=== PATIENT | male | born 1970 | race Caucasian/White ===

== ENCOUNTER → 2018-11-04 | Outpatient (CLI) | payer BC ==
--- NOTE | 2018-11-04 10:35 | NM ---
EXAMINATION TYPE: NM hepatobiliary w EF DATE OF EXAM: 11/04/2018 COMPARISON: Abdominal ultrasound dated 11/04/2018 HISTORY: Right upper quadrant pain TECHNIQUE: After the intravenous administration of 5.21 mCi Tc 99m Mebrofenin hepatobiliary scintigra phy is performed. Immediate images post injection. FINDINGS: There is satisfactory initial accumulation of tracer by the liver. The gallbladder is visualized wit hin 14 minutes. The small bowel activity is noted within 26th minutes. At one hour 8 ounces of oral ensure plus is given to mimic CCK and gallbladder ejection fraction is calculated at 45 %, in the no rmal range. Therefore there is no scintigraphic evidence of cystic or common bile duct obstruction t o suggest acute cholecystitis or gallbladder dyskinesia. IMPRESSION: No scintigraphic evidence of acute cholecystitis, chronic cholecystitis or biliary dyskin esia.
--- NOTE | 2018-11-04 10:46 | US ---
EXAMINATION TYPE: US abdomen complete DATE OF EXAM: 11/04/2018 COMPARISON: NONE CLINICAL HISTORY: R10.11 Right upper quad pain. epigastric pain per patient; constipation EXAM MEASUREMENTS: Liver Length: 15.3 cm Gallbladder Wall: 0.2 cm CBD: 0.2 cm Spleen: 10.2 cm Right Kidney: 11.4 x 6.6 x 5.3 cm Left Kidney: 11.2 x 5.8 x 5.0 cm Pancreas: tail obscured by overlying bowel gas Liver: There is increased echogenicity of the hepatic parenchyma with diminished visualization of th e portal triads most commonly relating to hepatic steatosis and limiting evaluation for underlying he patic masses. Gallbladder: wnl and scanned intercostally; overlying bowel gas Evidence for sonographic Salmeron's sign: no CBD: wnl Spleen: wnl Right Kidney: wnl Left Kidney: wnl Upper IVC: wnl Abd Aorta: wnl The intrahepatic portion of the IVC and proximal abdominal aorta are within normal limits. There is no evidence of cholelithiasis. Common bile duct is unremarkable. The visualized portions of the zhao creas are homogenous. The spleen is unremarkable. Kidneys are symmetric and free of hydronephrosis. No renal lesions are seen. IMPRESSION: 1. No sonographic evidence of cholelithiasis nor acute cholecystitis. 2. Heterogeneity and slight hyperechogenicity of the hepatic parenchyma most commonly related to hepa tic steatosis overall appearing mild in degree. Correlate with liver function tests.
== END | disposition home or self-care (01) ==
LOC: RADUSMAIN 06:57
PROVIDERS: ATTEND Surgery
DX: R93.2 Abnormal findings on diagnostic imaging of liver and biliary tract (principal); R10.11 Right upper quadrant pain
CPT/HCPCS: 76700; 78226; A9537

== ENCOUNTER 2022-12-15 07:56 | Day surgery (SDC) | payer BC ==
[2022-12-10 11:47] VITALS: BMI 34.0
[~2022-12-15 07:56] MED LIST: LACTATED RINGERS 1,000 ML IV SCH; LIDOCAINE 1% (10MG/ML) FOR IV START INTRADERMA PRN
[2022-12-15 08:24] VITALS: RESP 16; TEMP 97.1
[2022-12-15 08:40] LABS: Glucose,Whole Blood 90 mg/dL (70-110)
[2022-12-15] MEDS ORDERED: PROPOFOL 10 MG/ML 20 ML VIAL IV ONE (09:11)
--- NOTE | 2022-12-15 09:35 | P.PCN ---
Date of Procedure: 12/15/22 Procedure(s) Performed: BRIEF HISTORY: Patient is a 52-year-old pleasant white male scheduled for an elective colonoscopy as a part of screening for colon cancer. PROCEDURE PERFORMED: Colonoscopy. PREOPERATIVE DIAGNOSIS: Screening for colon cancer. IV sedation per Anesthesia. PROCEDURE: After informed consent was obtained, the patient, was brought into the endoscopy unit. IV sedation was administered by Anesthesia under continuous monitoring. Digital rectal examination was normal. Initially the Olympus CF-160 flexible video colonoscope was then inserted in the rectum, gradually advanced into the cecum without any difficulty. Careful examination was performed as the scope was gradually being withdrawn. Ileocecal valve and the appendiceal orifice were visualized and appeared normal. Prep was excellent. Mucosa of the cecum, ascending colon, transverse colon, descending colon, sigmoid colon, and rectum appeared normal. Retroflexion was performed in the rectum and no lesions were seen. The patient tolerated the procedure well. IMPRESSION: Normal-appearing colon from rectum to cecum with no evidence of colorectal neoplasia . RECOMMENDATIONS: Findings of this examination were discussed with the patient as well as his family. He was advised to have a repeat screening colonoscopy in 10 years.
[2022-12-15 09:44] VITALS: BP 125/79; PULSE 91
== END 2022-12-15 10:25 | disposition home or self-care (01) ==
LOC: ORWHC2ENDO 07:56
PROVIDERS: ATTEND Internal Medicine Gastroenterology
DX: Z12.11 Encounter for screening for malignant neoplasm of colon (principal); I10 Essential (primary) hypertension; G47.33 Obstructive sleep apnea (adult) (pediatric); E03.9 Hypothyroidism, unspecified; E11.9 Type 2 diabetes mellitus without complications; K21.9 Gastro-esophageal reflux disease without esophagitis; Z79.899 Other long term (current) drug therapy; Z79.890 Hormone replacement therapy
CPT/HCPCS: 45378; J2704; 45380

== ENCOUNTER 2023-01-10 22:06 | Emergency (ER) | payer BC ==
[2023-01-10 22:34] VITALS: RESP 16
[2023-01-10] MEDS ORDERED: KETOROLAC 15 MG/ML 1 ML VIAL IM STA (23:28)
[2023-01-10] MEDS ORDERED: LIDOCAINE 5% PATCH TOPICAL STA (23:28)
[2023-01-10] MEDS ORDERED: ORPHENADRINE 30 MG/ML 2 ML VIAL IM STA (23:29)
[2023-01-10 23:57] LABS: Appearance,Urine Clear (Clear); Bilirubin,Urine Negative (Negative); Blood,Urine Negative (Negative); Color,Urine Light Yellow; Glucose,Urine (UA) Negative (Negative); Ketones,Urine Negative (Negative); Leukocyte Esterase,Urine Trace (Negative); Mucus,Urine Rare /hpf; Nitrite,Urine Negative (Negative); PH, Urine 5.5 (5.0-8.0); Protein,Urine Negative (Negative); RBC,Urine <1 /hpf (0-5); Specific Gravity,Urine 1.016 (1.001-1.035); Squamous Epithelial Cell,Urine <1 /hpf (0-4); Urobilinogen,Urine <2.0 mg/dL (<2.0); WBC,Urine 1 /hpf (0-5)
[2023-01-11] MEDS ORDERED: ACET/COD 300 MG/30 MG STARTER PACK 6 TAB BTL PO STA (01:06)
[2023-01-11] MEDS ORDERED: HYDROmorphone 0.5 MG/0.5 ML SYRINGE IM STA (01:06)
--- NOTE | 2023-01-11 01:08 | ED ---
Back Pain HPI - General Chief Complaint: Back Pain/Injury Stated Complaint: back issue Time Seen by Provider: 01/10/23 23:13 Source: patient Limitations: no limitations - History of Present Illness Initial Comments: Patient is a 52-year-old male who presents to the emergency department for back pain. Patient woke up with the back pain on . He denies injury. Pain is in his lower back mostly on the right. It is worsened with movement. He denies any radiation. No numbness or tingling in the legs, groin, buttock region. No leg weakness. No loss of bowel or bladder function. No fever, chills, abdominal pain, nausea, vomiting, blood in the urine. - Related Data Home Medications Medication Instructions Recorded Confirmed Loratadine-Pseudoeph 10-240 mg 1 each PO HS 10/29/14 12/10/22 [Claritin-D 24 Hr] Levothyroxine Sodium 112 mcg PO DAILY 12/10/22 12/10/22 Multivitamin [Multivitamins Adult 1 each PO DAILY 12/10/22 12/10/22 Gummies] Previous Rx's Medication Instructions Recorded Cyclobenzaprine [Flexeril] 10 mg PO TID PRN #15 tab 01/11/23 Ibuprofen [Motrin] 800 mg PO Q8HR PRN #30 tab 01/11/23 Lidocaine 5% Patch [Lidoderm 5% 1 patch TOPICAL DAILY PRN #7 patch 01/11/23 Patch] Allergies Allergy/AdvReac Type Severity Reaction Status Date / Time No Known Allergies Allergy Verified 01/10/23 22:32 Review of Systems ROS Statement: Those systems with pertinent positive or pertinent negative responses have been documented in the HPI. ROS Other: All systems not noted in ROS Statement are negative. Past Medical History Past Medical History: Diabetes Mellitus, GERD/Reflux, Hypertension, Sleep Apnea/CPAP/BIPAP, Thyroid Disorder Additional Past Medical History / Comment(s): chronic constipation, diagnosed with sleep apnea 20 yrs ago-never got his machine., recent mild high bloodpressure-states he declined rx and trying diet., [id number] controlled., sciatica, weak urine stream., pt thinks he had hashimotos and thyroid removed. History of Any Multi-Drug Resistant Organisms: None Reported Past Surgical History: Appendectomy Additional Past Surgical History / Comment(s): thyroidectomy, colonoscopy Past Anesthesia/Blood Transfusion Reactions: No Reported Reaction Past Psychological History: No Psychological Hx Reported Smoking Status: Never smoker Past Alcohol Use History: Occasional Past Drug Use History: None Reported - Past Family History Father Family Medical History: Cancer Additional Family Medical History / Comment(s): passed from melanoma Son(s) Family Medical History: Cancer Additional Family Medical History / Comment(s): from leukemia General Exam Limitations: no limitations General appearance: alert Head exam: Present: atraumatic, normocephalic, normal inspection Respiratory exam: Present: normal lung sounds bilaterally. Absent: respiratory distress, wheezes, rales, rhonchi, stridor Cardiovascular Exam: Present: regular rate, normal rhythm, normal heart sounds. Absent: systolic murmur, diastolic murmur, rubs, gallop, clicks GI/Abdominal exam: Present: soft, normal bowel sounds. Absent: distended, tenderness, guarding, rebound, rigid Back exam: Present: normal inspection, full ROM, paraspinal tenderness (lumber b/l). Absent: CVA tenderness (R), CVA tenderness (L), vertebral tenderness Neurological exam: Present: alert, oriented X3, CN II-XII intact Expanded Motor strength exam: LUE: 5, LLE: 5 Psychiatric exam: Present: normal affect, normal mood Skin exam: Present: warm, dry, intact, normal color. Absent: rash Course Vital Signs 01/10/23 01/11/23 22:32 01:27 Temperature 98.2 F 98.1 F Pulse Rate 96 84 Respiratory 16 16 Rate Blood Pressure 130/89 126/87 O2 Sat by Pulse 98 100 Oximetry Medical Decision Making - Medical Decision Making Was pt. sent in by a medical professional or institution (, PA, REGISTERED RADIATION THERAPIST, urgent care, hospital, or half-way...) When possible be specific @ -No Did you speak to anyone other than the patient for history (EMS, parent, family, police, friend...)? What history was obtained from this source @ -No Did you review nursing and triage notes (agree or disagree)? Why? @ -I reviewed and agree with nursing and triage notes Were old charts reviewed (outside hosp., previous admission, EMS record, old EKG, old radiological studies, urgent care reports/EKG's, half-way records)? Report findings @ -No old charts were reviewed Differential Diagnosis (chest pain, altered mental status, abdominal pain women, abdominal pain men, vaginal bleeding, weakness, fever, dyspnea, syncope, headache, dizziness, GI bleed, back pain, seizure, CVA, palpatations, mental health)? @ -Differential Back Pain: Strain, zoster, cauda equina syndrome, epidural abscess, vertebral osteomyelitis, discitis, fracture, subluxation, disc herniation, DJD, spinal stenosis, dissection, AAA, pancreatitis, peptic ulcer disease, pyelonephritis, kidney stone, this is not meant to be an all-inclusive list. EKG interpreted by me (3pts min.). @ -As above X-rays interpreted by me (1pt min.). @ -None done CT interpreted by me (1pt min.). @ -None done U/S interpreted by me (1pt. min.). @ -None done What testing was considered but not performed or refused? (CT, X-rays, U/S, labs)? Why? @ -Considered CT imaging however patient does not have midline pain or tenderness. No signs or symptoms of cauda equina. What meds were considered but not given or refused? Why? @ -None Did you discuss the management of the patient with other professionals (professionals i.e. , PA, REGISTERED RADIATION THERAPIST, lab, RT, psych nurse, social media campaign manager, handcrew foreman, teacher, data officer, case operator)? Give summary @ -No Was smoking cessation discussed for >3mins.? @ -No Was critical care preformed (if so, how long)? @ -No Were there social determinants of health that impacted care today? How? (Homelessness, low income, unemployed, alcoholism, drug addiction, transportation, low edu. Level, literacy, decrease access to med. care, nursing home, rehab)? @ -[No] Was there de-escalation of care discussed even if they declined (Discuss DNR or withdrawal of care, Hospice)? DNR status @ -[No] What co-morbidities impacted this encounter? (DM, HTN, Smoking, COPD, CAD, Cancer, CVA, ARF, Chemo, Hep., AIDS, mental health diagnosis, sleep apnea, morbid obesity)? @ -[None] Was patient admitted / discharged? Hospital course, mention meds given and route, prescriptions, significant lab abnormalities, going to OR and other pertinent info. @ -Patient presenting with back pain consistent with mechanical back pain. No signs or symptoms of cauda equina. Patient given Toradol, muscle relaxer, lidocaine patch with little relief. He was then given 1 dose of Dilaudid with relief. Patient will be discharged home with symptomatic management. Undiagnosed new problem with uncertain prognosis? @ -[No] Drug Therapy requiring intensive monitoring for toxicity (Heparin, Nitro, Insulin, Cardizem)? @ -[No] Were any procedures done? @ -[No] Diagnosis/symptom? @ -Mechanical back pain Acute, or Chronic, or Acute on Chronic? @ -Acute Uncomplicated (without systemic symptoms) or Complicated (systemic symptoms)? @ -Uncomplicated Side effects of treatment? @ -[No] Exacerbation, Progression, or Severe Exacerbation? @ -[No] Poses a threat to life or bodily function? How? (Chest pain, USA, PR, pneumonia, PE, COPD, DKA, ARF, appy, cholecystitis, CVA, Diverticulitis, Homicidal, Suicidal, threat to staff... and all critical care pts) @ -No Dr. Millan is my attending - Lab Data Lab Results 01/10/23 Range/Units 23:41 Urine Color Light Yellow Urine Appearance Clear (Clear) Urine pH 5.5 (5.0-8.0) Ur Specific [place] 1.016 (1.001-1.035) Urine Protein Negative (Negative) Urine Glucose (UA) Negative (Negative) Urine Ketones Negative (Negative) Urine Blood Negative (Negative) Urine Nitrite Negative (Negative) Urine Bilirubin Negative (Negative) Urine Urobilinogen <2.0 (<2.0) mg/dL Ur Leukocyte Esterase Trace H (Negative) Urine RBC <1 (0-5) /hpf Urine WBC 1 (0-5) /hpf Ur Squamous Epith Cells <1 (0-4) /hpf Urine Mucus Rare H (None) /hpf Disposition Clinical Impression: Mechanical back pain Disposition: HOME SELF-CARE Condition: Good Instructions (If sedation given, give patient instructions): Acute Low Back Pain (ED) Additional Instructions: Take medication as directed. Do not operate machinery or drink alcohol while taking Flexeril as it can cause drowsiness. Follow-up with cyber systems operations specialist in 1-2 days. Return to the emergency department if you experience new, concerning, or worsening symptoms. Prescriptions: Cyclobenzaprine [Flexeril] 10 mg PO TID PRN #15 tab PRN Reason: Muscle Spasm Lidocaine 5% Patch [Lidoderm 5% Patch] 1 patch TOPICAL DAILY PRN #7 patch PRN Reason: Pain Ibuprofen [Motrin] 800 mg PO Q8HR PRN #30 tab PRN Reason: Pain Is patient prescribed a controlled substance at d/c from ED?: No Referrals: Aaron Chang DO [Primary Care Provider] - 1-2 days Daniel Nicholas MD [Medical Doctor] - 1-2 days
[2023-01-11 01:28] VITALS: BP 126/87; PULSE 84; TEMP 98.1
== END 2023-01-11 01:28 | disposition home or self-care (01) ==
LOC: EC 22:06
DX: M54.9 Dorsalgia, unspecified (principal); E11.9 Type 2 diabetes mellitus without complications; I10 Essential (primary) hypertension; E07.9 Disorder of thyroid, unspecified; Z79.890 Hormone replacement therapy; Z79.899 Other long term (current) drug therapy
CPT/HCPCS: 81001; 99283; 96372 ×3; J2360; J1885; J1170

== ENCOUNTER → 2023-04-16 | Outpatient (CLI) | payer BC ==
--- NOTE | 2023-04-16 09:36 | BD ---
EXAMINATION TYPE: Axial Bone Density DATE OF EXAM: 04/16/2023 CLINICAL HISTORY: 53 years old Male. ICD-10 CODE: E21.0 PRIMARY HYPERPARATHYROIDISM Height: 69 Weight: 221.1 FRAX RISK QUESTIONS: Alcohol (3 or more units per day): no Family History (Parent hip fracture): no Glucocorticoids (More than 3mos): no (Ex: prednisone, prednisolone, methylprednisolone, dexamethasone, and hydrocortisone). History of Fracture in Adulthood: no Secondary Osteoporosis: 1. Type 1 Diabetes: no 2. Hyperthyroidism: no 4. Malnutrition: no 5. Chronic liver disease: no Rheumatoid Arthritis: no Current Tobacco Use: no RISK FACTORS HISTORY OF: Surgery to Spine/Hip(right/left)/Wrist (right/left): no Family History of Osteoporosis: yes Active: yes Diet low in dairy products/other sources of calcium: no Lost more than 2 inches in height since high school: no Hyperparathyroidism: yes MEDICATIONS: Thyroid Medications: levothyroxine How Lon years Additional History: EXAM MEASUREMENTS: Bone mineral densitometry was performed using the [employer] System. Bone mineral density as measured about the Lumbar spine is: ----- L1-L4(G/cm2): 1.206 T Score Values are as follows: ----- L1: -1.0 ----- L2: 0.3 ----- L3: -0.4 ----- L4: 1.6 ----- L1-L4: 0.2 Z Score Values are as follows: ----- L1: -1.8 ----- L2: -0.5 ----- L3: -1.2 ----- L4: 0.7 ----- L1-L4: -0.6 Bone mineral density : baseline Bone mineral density about the R hip (g/cm2): 1.140 Bone mineral density about the L hip (g/cm2): 1.158 T Score values are as follows: -----R Neck: 0.5 -----L Neck: 0.6 -----R Total: 1.1 -----L Total: 1.2 Z Score values are as follows: -----R Neck: 0.4 -----L Neck: 0.6 -----R Total: 0.2 -----L Total: 0.3 Bone mineral density : baseline FRAX%s: The graph provided illustrates a 3.0% chance for a major osteoporotic fx and a 0.1% chance fo r the hips probability for fx in 10 years time. IMPRESSION: Normal (Values between +1 and -1 indicate normal bone mass). Consider repeating this study in 5 year s or sooner if there is some new clinical indication. NOTE: T-SCORE=SD OF THE YOUNG ADULT MEAN.
== END | disposition home or self-care (01) ==
LOC: RADBDWWP 08:36
PROVIDERS: ATTEND Family Medicine
DX: E21.0 Primary hyperparathyroidism (principal); M85.88 Other specified disorders of bone density and structure, other site
CPT/HCPCS: 77080

== ENCOUNTER 2023-06-23 16:04 | Emergency (ER) | payer BC ==
[2023-06-23 17:49] VITALS: BP 143/99; PULSE 91; RESP 18; TEMP 98
--- NOTE | 2023-06-23 18:03 | XR ---
EXAMINATION TYPE: XR Hip Complete LT DATE OF EXAM: 06/23/2023 6:00 PM INDICATION: Patient age:Male; 53 years old; Reason for study: hip pain; PHH. COMPARISON: None. TECHNIQUE: The left hip was examined in the frontal and lateral projections . FINDINGS: No evidence of any acute osseous pathology, joint dislocation, or soft tissue swelling. No significant joint space narrowing or spurring. Pelvic phleboliths. IMPRESSION: No acute osseous pathology.
[2023-06-23] MEDS ORDERED: predniSONE 50 MG TAB PO STA (18:24)
--- NOTE | 2023-06-23 18:30 | ED ---
General Adult HPI - General Chief complaint: Extremity Injury, Lower Stated complaint: L Hip Pain Time Seen by Provider: 06/23/23 18:15 Source: patient, RN notes reviewed, old records reviewed Mode of arrival: wheelchair - History of Present Illness Initial comments: This is a 53-year-old male comes into the emergency department complaining of left-sided hip pain for the last few days. Patient states she's been on a picket line and walking in an angle for the last few days and this seems to have caused the hip pain in the left hip. Patient states the pain is a little post erior to the left hip and sometimes when he steps that the pain is so bad it kind of gives out. Patient denies any numbness or actual weakness. Patient states the pain does radiate from that posterior point of the hip down the leg a little bit. Patient states he has had sciatica in the past. Patient denies any actual trauma or blunt trauma to the area. Patient denies any redness swelling. He denies any problems urinating. - Related Data Home Medications Medication Instructions Recorded Confirmed Loratadine-Pseudoeph 10-240 mg 1 each PO HS 10/29/14 12/10/22 [Claritin-D 24 Hr] Levothyroxine Sodium 112 mcg PO DAILY 12/10/22 12/10/22 Multivitamin [Multivitamins Adult 1 each PO DAILY 12/10/22 12/10/22 Gummies] Previous Rx's Medication Instructions Recorded Cyclobenzaprine [Flexeril] 10 mg PO TID PRN #15 tab 01/11/23 Ibuprofen [Motrin] 800 mg PO Q8HR PRN #30 tab 01/11/23 Lidocaine 5% Patch [Lidoderm 5% 1 patch TOPICAL DAILY PRN #7 patch 01/11/23 Patch] predniSONE [Deltasone] 40 mg PO DAILY #8 tab 06/23/23 Allergies Allergy/AdvReac Type Severity Reaction Status Date / Time No Known Allergies Allergy Verified 06/23/23 17:43 Review of Systems ROS Statement: Those systems with pertinent positive or pertinent negative responses have been documented in the HPI. ROS Other: All systems not noted in ROS Statement are negative. Past Medical History Past Medical History: Diabetes Mellitus, GERD/Reflux, Hypertension, Sleep Apnea/CPAP/BIPAP, Thyroid Disorder Additional Past Medical History / Comment(s): chronic constipation, diagnosed with sleep apnea 20 yrs ago-never got his machine., recent mild high bloodpressure-states he declined rx and trying diet., [id number] controlled., sciatica, weak urine stream., pt thinks he had hashimotos and thyroid removed. History of Any Multi-Drug Resistant Organisms: None Reported Past Surgical History: Appendectomy Additional Past Surgical History / Comment(s): thyroidectomy, colonoscopy Past Anesthesia/Blood Transfusion Reactions: No Reported Reaction Past Psychological History: No Psychological Hx Reported Smoking Status: Never smoker Past Alcohol Use History: Occasional Past Drug Use History: None Reported - Past Family History Father Family Medical History: Cancer Additional Family Medical History / Comment(s): passed from melanoma Son(s) Family Medical History: Cancer Additional Family Medical History / Comment(s): from leukemia General Exam - General Exam Comments Initial Comments: GENERAL Patient is well-developed and well-nourished. Patient is in mild distress. EYES Patient's pupils are equal and round. Extraocular motion is intact SKIN Unremarkable NEURO The patient is alert and oriented 3 PYSCH Patient has normal interpersonal interactions. MUSCULOSKELETAL Patient has some point tenderness just posterior aspect of the hip Course Vital Signs 06/23/23 17:40 Temperature 98 F Pulse Rate 91 Respiratory 18 Rate Blood Pressure 143/99 O2 Sat by Pulse 97 Oximetry Medical Decision Making - Medical Decision Making Was pt. sent in by a medical professional or institution (BRIANA Loaiza, PORTFOLIO ACCOUNTANT, urgent care, hospital, or [facility]...) When possible be specific @ -No Did you speak to anyone other than the patient for history (EMS, parent, family, police, friend...)? What history was obtained from this source @ -No Did you review nursing and triage notes (agree or disagree)? Why? @ -I reviewed and agree with nursing and triage notes Were old charts reviewed (outside hosp., previous admission, EMS record, old EKG, old radiological studies, urgent care reports/EKG's, [facility] records)? Report findings @ -No old charts were reviewed Differential Diagnosis (chest pain, altered mental status, abdominal pain women, abdominal pain men, vaginal bleeding, weakness, fever, dyspnea, syncope, headache, dizziness, GI bleed, back pain, seizure, CVA, palpatations, mental health, musculoskeletal)? @ -Differential Musculoskeletal Muscular strain, contusion, ligament sprain, fracture, arthritis, septic arthrit is, bursitis, cellulitis, muscle spasm, nerve compression, DVT, arterial occlusion, herpes zoster, electrolyte abnormality, tumor.... This is not meant to be in all inclusive list EKG interpreted by me (3pts min.). @ -As above X-rays interpreted by me (1pt min.). @ -X-ray of the hip shows no acute abnormality CT interpreted by me (1pt min.). @ -None done U/S interpreted by me (1pt. min.). @ -None done What testing was considered but not performed or refused? (CT, X-rays, U/S, labs)? Why? @ -None What meds were considered but not given or refused? Why? @ -None Did you discuss the management of the patient with other professionals (professionals i.e. , PA, PORTFOLIO ACCOUNTANT, lab, RT, psych nurse, manager social media, tool analyst, teacher, security vehicle patrol officer, case coordinator)? Give summary @ -No Was smoking cessation discussed for >3mins.? @ -No Was critical care preformed (if so, how long)? @ -No Were there social determinants of health that impacted care today? How? (Homelessness, low income, unemployed, alcoholism, drug addiction, transportation, low edu. Level, literacy, decrease access to med. care, long-term, rehab)? @ -No Was there de-escalation of care discussed even if they declined (Discuss DNR or withdrawal of care, Hospice)? DNR status @ -No What co-morbidities impacted this encounter? (DM, HTN, Smoking, COPD, CAD, Cancer, CVA, ARF, Chemo, Hep., AIDS, mental health diagnosis, sleep apnea, morbid obesity)? @ -None Was patient admitted / discharged? Hospital course, mention meds given and route, prescriptions, significant lab abnormalities, going to OR and other pertinent info. @ -Producible point tenderness in the back. Patient received prednisone in the emergency department as well as Tylenol. Patient was instructed to follow-up with orthopedics if pain did not subside. Undiagnosed new problem with uncertain prognosis? @ -No Drug Therapy requiring intensive monitoring for toxicity (Heparin, Nitro, Insulin, Cardizem)? @ -No Were any procedures done? @ -No Diagnosis/symptom? @ -Sciatica Acute, or Chronic, or Acute on Chronic? @ -Acute Uncomplicated (without systemic symptoms) or Complicated (systemic symptoms)? @ -Uncomplicated Side effects of treatment? @ -No Exacerbation, Progression, or Severe Exacerbation? @ -No Poses a threat to life or bodily function? How? (Chest pain, USA, [place], pneumonia, PE, COPD, DKA, ARF, appy, cholecystitis, CVA, Diverticulitis, Homicidal, Suicidal, threat to staff... and all critical care pts) @ -No Disposition Clinical Impression: Sciatica Disposition: HOME SELF-CARE Condition: Good Instructions (If sedation given, give patient instructions): Sciatica (ED) Prescriptions: predniSONE [Deltasone] 40 mg PO DAILY #8 tab Is patient prescribed a controlled substance at d/c from ED?: No Referrals: Aaron Chang DO [Primary Care Provider] - 1-2 days Time of Disposition: 18:30
[2023-06-23] MEDS ORDERED: ACETAMINOPHEN TAB 500 MG TAB PO STA (18:32)
[2023-06-23] MEDS ORDERED: ACET/COD 300 MG/30 MG STARTER PACK 6 TAB BTL PO STA (18:32)
== END 2023-06-23 18:52 | disposition home or self-care (01) ==
LOC: EC 16:04
DX: M54.32 Sciatica, left side (principal); E11.9 Type 2 diabetes mellitus without complications; I10 Essential (primary) hypertension; E07.9 Disorder of thyroid, unspecified; Z79.890 Hormone replacement therapy; Z79.899 Other long term (current) drug therapy
CPT/HCPCS: 73502; 99283; J7512

== ENCOUNTER → 2024-05-30 | Outpatient (CLI) | payer BC ==
[2024-05-30 14:44] VITALS: BP 122/83; PULSE 82; RESP 16; TEMP 98.2
--- NOTE | 2024-05-30 15:32 | P.SLEEP ---
History of Present Illness H&P Date: 05/30/24 This is a 54-year-old male patient, who is coming in for sleep apnea evaluation. In fact, this patient has been diagnosed having obstructive sleep apnea approximately 15 to 20 years ago. At that time, he was young and he felt that CPAP therapy would not be an attractive treatment for his obstructive sleep apnea. Based on that, he did not pursue any treatment. Over the years, his symptoms of sleep apnea got worse. Currently, the patient is having loud snoring, he stops breathing during the night and he has excessive tiredness and sleepiness during the day. He works for [employer] in [place] and he drives back and forth from [facility] to [place]. He does not fall asleep while driving. 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 Uncertain occasions, he has pulled on the side of the road to take a nap. He goes to bed at around 11:00 and he wakes up 4 AM in the morning. He wakes up not refreshed and is feeling tired and sleepy during the day. No history of any motor vehicle accidents because of feeling drowsy or sleepy. Over the past 10 years, the patient has gained around 20 pounds. No substance abuse. No alcoholism. He drinks Mountain Dew to keep himself awake and stimulated. No grinding of the teeth. No nocturia. No restlessness in lower extremities. No sleepwalking or sleep talking. He is waking up tired and sleepy and he has trouble paying attention and problems with memory and concentration are also present. He also has a side job which is in the [employer] business. The patient has given away some of his visits that the patient has been feeling tired and fatigue and he was unable to keep up with the job requirements. He has previous history of thyroidectomy and the patient is currently on thyroid hormone replacement. He has also issues with asthma, eosinophilic esophagitis and chronic allergies. Other comorbidities include hypothyroidism and hyperlipidemia. Review of Systems Constitutional: Reports daytime sleepiness, Reports fatigue, Reports weight gain Eyes: denies as per HPI, denies blurred vision, denies bulging eye, denies decreased vision, denies diplopia, denies discharge, denies dry eye, denies irritation, denies itching, denies pain, denies photophobia, denies loss of peripheral vision, denies loss of vision, denies tunnel vision/blind spots Ears: deny: decreased hearing, ear discharge, earache, tinnitus Ears, nose, mouth and throat: Reports as per HPI Breasts: absent: as per HPI, gynecomastia Cardiovascular: Reports as per HPI Respiratory: Reports sleep apnea Gastrointestinal: Reports as per HPI Genitourinary: Reports as per HPI Musculoskeletal: Reports as per HPI Musculoskeletal: absent: ankle pain, ankle stiffness, ankle swelling, as per HPI, elbow pain, elbow stiffness, elbow swelling, foot pain, foot stiffness, foot swelling, hand pain, hand stiffness, hand swelling, hip pain, hip stiffness, hip swelling, knee pain, knee stiffness, knee swelling, shoulder pain, shoulder stiffness, shoulder swelling, wrist pain, wrist stiffness, wrist swelling Integumentary: Reports as per HPI Neurological: Reports as per HPI Psychiatric: Reports hypersomnia, Reports sleep disturbances Endocrine: Reports as per HPI Hematologic/Lymphatic: Reports as per HPI Allergic/Immunologic: Reports as per HPI Past Medical History Past Medical History: Diabetes Mellitus, GERD/Reflux, Hypertension, Sleep Apnea/CPAP/BIPAP, Thyroid Disorder Additional Past Medical History / Comment(s): chronic constipation, diagnosed with sleep apnea 20 yrs ago-never got his machine., recent mild high bloodpressure-states he declined rx and trying diet., [id number] controlled., sciatica, weak urine stream., pt thinks he had hashimotos and thyroid removed. History of Any Multi-Drug Resistant Organisms: None Reported Past Surgical History: Appendectomy Additional Past Surgical History / Comment(s): thyroidectomy, colonoscopy Past Anesthesia/Blood Transfusion Reactions: No Reported Reaction Past Psychological History: No Psychological Hx Reported Smoking Status: Never smoker Past Alcohol Use History: Occasional Past Drug Use History: None Reported - Past Family History Father Family Medical History: Cancer, Diabetes Mellitus, Thyroid Disorder Additional Family Medical History / Comment(s): snoring, passed from melanoma Son(s) Family Medical History: Cancer, Hypertension Additional Family Medical History / Comment(s): from leukemia Medications and Allergies Home Medications Medication Instructions Recorded Confirmed Type Loratadine-Pseudoeph 10-240 mg 1 each PO HS 10/29/05/30/24 History [Claritin-D 24 Hr] Levothyroxine Sodium 112 mcg PO DAILY 12/10/22 05/30/24 History Multivitamin [Multivitamins Adult 1 each PO DAILY 12/10/22 05/30/24 History Gummies] Cyclobenzaprine [Flexeril] 10 mg PO TID PRN #15 tab 01/11/23 Rx Ibuprofen [Motrin] 800 mg PO Q8HR PRN #30 tab 01/11/23 Rx Lidocaine 5% Patch [Lidoderm 5% 1 patch TOPICAL DAILY PRN #7 patch 01/11/23 Rx Patch] predniSONE [Deltasone] 40 mg PO DAILY #8 tab 06/23/23 Rx Calcium/D3/Zinc/Copper/Gume 500 mg PO DAILY 05/30/24 05/30/24 History [Citracal-D3 Maximum Plus Caplt] Allergies Allergy/AdvReac Type Severity Reaction Status Date / Time No Known Allergies Allergy Verified 06/23/23 17:43 Physical Exam Vitals: Vital Signs Temp Pulse Resp BP Pulse Ox 05/30/24 14:42 98.2 F 82 16 122/83 95 Intake and Output 05/30/24 05/30/24 05/30/24 06:59 14:59 22:59 Other: Weight 104.78 kg The patient appeared well nourished and normally developed. Vital signs as documented. Head exam is unremarkable. No scleral icterus or corneal arcus noted. Neck is without jugular venous distension, thyromegaly, or carotid bruits. Carotid upstrokes are brisk bilaterally. The patient has a Mallampati class IV with significant crowding of the posterior pharynx. Lungs are clear to auscultation and percussion. Cardiac exam reveals the PMI to be normally sized and situated. Rhythm is regular. First and second heart sounds normal. No murmurs, rubs or gallops. Abdominal exam reveals normal bowel sounds, no masses, no organomegaly and no aortic enlargement. Extremities are nonedematous and both femoral and pedal pulses are normal. Examination of the skin revealed no evidence of significant rashes, suspicious appearing nevi or other concerning lesions. Neurologically, the patient is awake and alert and the patient does not have any focal neurological deficit. Cranial nerves are essentially intact. Assessment and Plan Plan: obstructive sleep apnea, with symptoms of increased fatigue and tiredness and sleepiness, progressively getting worse over the years. Original diagnosis was done more than 15 years ago and the patient did not receive treatment back then and the patient is coming in for reevaluation he is interested in therapy. Chronic hypersomnia, his current [place] score is at 11 Obesity with a BMI of 35 Hypertension Diabetes mellitus type 2 History of thyroidectomy and the patient is currently on thyroid hormone replacement Sciatica Plan Clearly, the patient has symptoms obstructive sleep apnea that needs to be further followed up and treated. I encouraged him to lose weight. Encouraged him to use extended number of hours of sleep on average of 6 to 7 hours and as such he needs to go to bed earlier during the day. The patient will have a screening polysomnography to be followed by CPAP titration. I am hoping that with this treatment approach, he will improve his daytime level of alertness and eliminate and alleviate his fatigue. Will continue to follow. Sleep Note - Sleep Data ESS Total: 11 - Sleep Note Sleep Note: Temperature: 98.2 F Pulse Rate: 82 Respiratory Rate: 16 Blood Pressure: 122/83 SpO2: 95 Height: 5 ft 8 in Weight: 104.78 kg BMI: Neck Circumference: 17
== END ==
LOC: 3 N SLEEP 14:14
PROVIDERS: ATTEND Internal Medicine Critical Care Medicine
CPT/HCPCS: 99211

== ENCOUNTER → 2024-06-15 | Outpatient (CLI) | payer BC ==
--- NOTE | 2024-06-26 23:00 | P.PCN ---
Date of Procedure: 06/15/24 Operative Findings: Home sleep study testing Date of service is 06/15/2024 Pertinent history This is a 54-year-old male patient, who is coming in for sleep apnea evaluation. In fact, this patient has been diagnosed having obstructive sleep apnea approximately 15 to 20 years ago. At that time, he was young and he felt that CPAP therapy would not be an attractive treatment for his obstructive sleep apnea. Based on that, he did not pursue any treatment. Over the years, his symptoms of sleep apnea got worse. Currently, the patient is having loud snoring, he stops breathing during the night and he has excessive tiredness and sleepiness during the day. He works for [employer] in [place] and he drives back and forth from [facility] to [place]. He does not fall asleep while driving. 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 Uncertain occasions, he has pulled on the side of the road to take a nap. He goes to bed at around 11:00 and he wakes up 4 AM in the morning. He wakes up not refreshed and is feeling tired and sleepy during the day. No history of any motor vehicle accidents because of feeling drowsy or sleepy. Over the past 10 years, the patient has gained around 20 pounds. No substance abuse. No alcoholism. He drinks Mountain Dew to keep himself awake and stimulated. No grinding of the teeth. No nocturia. No restlessness in lower extremities. No sleepwalking or sleep talking. He is waking up tired and sleepy and he has trouble paying attention and problems with memory and concentration are also present. He also has a side job which is in the [employer] business. The patient has given away some of his visits that the patient has been feeling tired and fatigue and he was unable to keep up with the job requirements. He has previous history of thyroidectomy and the patient is currently on thyroid hormone replacement. He has also issues with asthma, eosinophilic esophagitis and chronic allergies. Other comorbidities include hypothyroidism and hyperlipidemia. Physical findings Patient's body mass index is 35.1 Technical description The [employer] system was used to complete his home sleep study. There is a type III home sleep study evaluation. The total recording duration was 6 hours and 43 minutes. The study started at 11:32 PM and ended at 6:15 AM. There was a total of 6 hours and 14 minutes of flow evaluation 6 hours and 9 minutes of oxygen saturation evaluation. This was an adequate study. Results The respiratory evaluation showed a total of 149 obstructive apneas and 58 obstructive hypopneas. This resulted into an AHI of 33.1 consistent with severe JUAN Oxygenation analysis The patient had a total of 115 episodes of oxygen saturation with a pulse ox dropping more than 4%. Baseline pulse ox while awake on room air oxygen was 95%. Average pulse ox during sleep was 91% and the minimum pulse ox of 69% and the patient spent approximately 1 hours and 43 minutes of the sleep time below pulse ox of 89% Cardiac summary Average heart rate was 73 with a minimum heart rate of 40 and a maximum heart rate of 164 Assessment Severe obstructive sleep apnea with an AHI of 33.1. Fatigue and tiredness and sleepiness, progressively getting worse over the years. Original diagnosis of sleep apnea was done more than 15 years ago and the patient did not receive treatment back then and the patient is coming in for reevaluation he is interested in therapy. Chronic hypersomnia, his current [place] score is at 11 Obesity with a BMI of 35 Hypertension Diabetes mellitus type 2 History of thyroidectomy and the patient is currently on thyroid hormone replacement Sciatica Plan The patient will be asked to come in to undergo a CPAP titration for severe symptomatic obstructive sleep apnea. I encouraged him to lose weight. Encouraged him to use extended number of hours of sleep on average of 6 to 7 hours and as such he needs to go to bed earlier during the day. Will continue to follow.
== END ==
LOC: 3 N SLEEP 11:03
PROVIDERS: ATTEND Internal Medicine Critical Care Medicine

== ENCOUNTER 2024-07-27 19:52 | Outpatient (CLI) | payer BC ==
--- NOTE | 2024-08-01 22:49 | P.PCN ---
Date of Procedure: 07/27/24 Operative Findings: CPAP titration study Date of service is 07/27/2024 History This is a 54-year-old male patient, who is coming in for sleep apnea evaluation. In fact, this patient has been diagnosed having obstructive sleep apnea approximately 15 to 20 years ago. At that time, he was young and he felt that CPAP therapy would not be an attractive treatment for his obstructive sleep apnea. Based on that, he did not pursue any treatment. Over the years, his symptoms of sleep apnea got worse. Currently, the patient is having loud snoring, he stops breathing during the night and he has excessive tiredness and sleepiness during the day. He works for [employer] in [place] and he drives back and forth from [facility] to [place]. He does not fall asleep while driving. 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 Uncertain occasions, he has pulled on the side of the road to take a nap. He goes to bed at around 11:00 and he wakes up 4 AM in the morning. He wakes up not refreshed and is feeling tired and sleepy during the day. No history of any motor vehicle accidents because of feeling drowsy or sleepy. Over the past 10 years, the patient has gained around 20 pounds. No substance abuse. No alcoholism. He drinks Mountain Dew to keep himself awake and stimulated. No grinding of the teeth. No nocturia. No restlessness in lower extremities. No sleepwalking or sleep talking. He is waking up tired and sleepy and he has trouble paying attention and problems with memory and concentration are also present. He also has a side job which is in the [employer] business. The patient has given away some of his visits that the patient has been feeling tired and fatigue and he was unable to keep up with the job requirements. He has previous history of thyroidectomy and the patient is currently on thyroid hormone replacement. He has also issues with asthma, eosinophilic esophagitis and chronic allergies. Other comorbidities include hypothyroidism and hyperlipidemia. The patient underwent a home sleep study on 06/16/2024 and the patient was found to have severe obstructive sleep apnea with an AHI of 33.1 associated with severe nocturnal oxygen desaturation. The patient is coming in for a CPAP titration study. Physical findings Patient's body mass index is 35.1, weight is 231 pounds and the height is 5 feet and 8 inches Technical description The patient was studied using a standard complex polysomnography protocol that included recording of the Lead II EKG, Central, occipital and frontal EEG, right and left outer canthus EOG, submental EMG, right and left anterior tibialis EMG, respiratory airflow by thermocouple and or pressure/flow transducer, respiratory efforts by abdominal and thoracic PVDF belts, oxygen saturation by cable oximetry. Position by observation synchronized the PSG. Equipment used: [employer]. Stepwise CPAP titration was done to limit all obstructive respiratory events Sleep architecture Total recording duration was 358.0 minutes. The total sleep time was 321.5 minutes. The latency to sleep onset was 13.5 minutes. Overall sleep efficiency was 89.8%. The wake after sleep onset time was 23 minutes. The sleep architecture was characterized by 7% stage I, 82.7% stage II, 0% stage III and XII 0.4% REM sleep. The total arousal index was 6.3 CPAP titration study The patient was started on CPAP therapy, initially at a pressure of 7 cm of water and the pressure was gradually increased by improvements of 1 cm to reach a maximum CPAP pressure of 12 cm of water. This was successful titration. There was significant improvement in the obstructive respiratory events at the very CPAP pressures utilized. This study was successful and it was done and REM and non-REM sleep. Recording was also done while the patient is assuming supine and nonsupine body position. Careful review of the CPAP titration was done and effectively, all pressure is above 7 cm of water with effective in eliminating obstructive respiratory events without any significant desaturations. The patient was able to maintain oxygen saturation above 90% throughout the titration. Arousal events The patient had a total of 34 arousals with an index of 6.3. The respiratory arousal index was 1.1 Periodic movement events A total of 29 periodic limb movement activity with an index of 5.4. Only 6 of those events were associated with arousals with an index of 1.1 Cardiac rates The average heart rate was 71 with a minimum heart rate of 67 and a maximum heart rate of 76 Assessment Severe obstructive sleep apnea with an AHI of 33.1. The patient underwent a successful CPAP titration with complete elevation of the obstructive respiratory events and he was able to maintain an oxygen saturation above 90% throughout the titration. Fatigue and tiredness and sleepiness Chronic hypersomnia, his current [place] score is at 11 Obesity with a BMI of 35 Hypertension Diabetes mellitus type 2 History of thyroidectomy and the patient is currently on thyroid hormone replacement Sciatica Plan Initiate CPAP therapy and the patient will be given a CPAP pressure of 7 cm of water and further adjustments on his CPAP pressure will be done based on the patient's clinical response and compliancy. Will offer the patient a AirFit F20 fullface mask large size I encouraged him to lose weight. The patient will be encouraged to extended number of hours of sleep on average of 6 to 7 hours and as such he needs to go to bed earlier during the day. Will continue to follow. The patient was seen back in the office in 30 to 90 days to assess clinical response and compliancy.
== END 2024-07-28 03:45 | disposition home or self-care (01) ==
LOC: 3 N SLEEP 19:52
PROVIDERS: ATTEND Internal Medicine Critical Care Medicine
DX: G47.33 Obstructive sleep apnea (adult) (pediatric) (principal); G47.10 Hypersomnia, unspecified; E66.9 Obesity, unspecified; I10 Essential (primary) hypertension; E11.9 Type 2 diabetes mellitus without complications; E78.5 Hyperlipidemia, unspecified; E89.0 Postprocedural hypothyroidism; M54.30 Sciatica, unspecified side; J45.909 Unspecified asthma, uncomplicated; K20.0 Eosinophilic esophagitis; R53.83 Other fatigue; Z68.35 Body mass index [BMI] 35.0-35.9, adult; Z79.890 Hormone replacement therapy
CPT/HCPCS: 95811